=== PATIENT | female | born 1995 | race Native Hawaiian/Other Pacific Islander ===

== ENCOUNTER 2022-09-01 17:35 | Emergency (ER) | payer OTHER ==
[~2022-09-01] VITALS: Ht 157.5 cm; Wt 117.9 kg
[2022-09-01 17:44] VITALS: BP 141/80; TEMP 98.5
== END 2022-09-01 19:18 | disposition home or self-care (01) ==
LOC: ED 17:35
DX: N39.0 Urinary tract infection, site not specified (principal)
CPT/HCPCS: 81000; 81025; 87088; 99283